=== PATIENT | female | born 1955 | race Caucasian/White ===

== ENCOUNTER 2022-01-04 10:33 | Emergency (ER) | payer OTHER, SELFPAY ==
[2022-01-04 11:51] LABS: Hemoglobin 14.4 g/dL (12.0-15.5); Mean Corpuscular HGB CONC 32.7 g/dL (32.0-36.0); Mean Corpuscular Hemoglobin 29.6 pg (27.0-33.0); Mean Corpuscular Volume 90.7 fl (81.6-98.3); Mean Platelet Volume 9.8 fl (7.4-10.4); Platelet Count 292 10x3/uL (150-450); RBC Distribution Width 14.9 % (11.5-14.5); Red Blood Cell (RBC) Count 4.86 10x6/uL (3.90-5.03); White Blood Cell (WBC) Count 7.2 10x3/uL (3.5-10.5)
[2022-01-04 11:52] LABS: MDiff Complete? YES
[2022-01-04 12:12] LABS: ALT (SGPT) 20 U/L (8-55); AST (SGOT) 20 U/L (5-34); Albumin 4.2 g/dL (3.4-4.8); Alkaline Phosphatase 46 U/L (40-110); Anion Gap 14 mmol/L (10-20); BUN (Urea Nitrogen) 11 mg/dL (9.8-20.1); Bilirubin, Total 0.5 mg/dL (0.2-1.2); Calc. Creatinine Clearance 0 mL/min (70-130); Calcium 9.1 mg/dL (7.8-10.44); Carbon Dioxide 27 mmol/L (23-31); Chloride 101 mmol/L (98-107); Globulin 1.9 g/dL (2.4-3.5); Glucose 100 mg/dL (80-115); Protein, Total 6.1 g/dL (5.8-8.1); Sodium 138 mmol/L (136-145)
[2022-01-04] MEDS ORDERED: diphenhydrAMINE 50 MG/ML VIAL ONE (12:26)
[2022-01-04] MEDS ORDERED: Metoclopramide HCl 10 MG/2 ML VIAL ONE (12:26)
[2022-01-04 12:31] LABS: Eosinophils 2 % (0-10); Lymphocytes 9 % (21-51); Monocytes 14 % (0-10); Neutrophil 64 % (42-75); Reactive Lymphocytes 10 % (0-10)
[2022-01-04 12:32] LABS: Platelet Morphology Comment Appears Adequate; RBC Morphology Normal
[2022-01-04 12:33] LABS: Bilirubin Neg (Negative); Blood, Urine 10 (Negative); Clarity Clear (Clear); Glucose, Urine (Dipstick) Normal (Negative); Ketone, Urine Negative (Negative); Leukocyte 25 (Negative); Nitrite Negative (Negative); Protein, Urine (Dipstick) 15 mg/dl (Neg-Trace); Urobilinogen Normal mg/dL (Less than 2)
[2022-01-04 13:00] LABS: Bacteria/HPF None Seen HPF (None Seen); Mucous/LPF 1+ LPF (<2+); RBC/HPF 0-3 HPF (0-3); Squamous Epithelial 0-3 HPF (0-3); WBC/HPF 0-3 HPF (0-3)
[2022-01-04] MEDS ORDERED: Ketorolac Tromethamine 30 MG/ML VIAL ONE (13:19)
== END 2022-01-04 14:59 | disposition home or self-care (01) ==
LOC: CSHERS 10:33
DX: S39.012A Strain of muscle, fascia and tendon of lower back, initial encounter (principal); J44.9 Chronic obstructive pulmonary disease, unspecified; G43.909 Migraine, unspecified, not intractable, without status migrainosus; F17.210 Nicotine dependence, cigarettes, uncomplicated; X58.XXXA Exposure to other specified factors, initial encounter
CPT/HCPCS: 70450; 71045; 80053; 81003; 81015; 83880; 84484; 85025; 93005; 96374; 96375; J1200; J1885; J2765

== ENCOUNTER 2022-01-18 16:06 | Emergency (ER) | payer OTHER ==
[2022-01-18 17:23] LABS: #Basophils 0.1 10x3/uL (0.0-0.2); #Monocytes 1.3 10x3/uL (0.0-1.1); #Neutrophils 13.8 10x3/uL (1.5-8.4); %Basophils 0.3 % (0.0-2.0); %Eosinophils 0.1 % (0.0-6.0); %Lymphocytes 13.9 % (18.0-47.0); %Monocytes 7.4 % (0.0-10.0); %Neutrophils 77.5 % (40.0-75.0); Hemoglobin 15.8 g/dL (12.0-15.5); Mean Corpuscular HGB CONC 33.2 g/dL (32.0-36.0); Mean Corpuscular Hemoglobin 29.6 pg (27.0-33.0); Mean Corpuscular Volume 89.1 fl (81.6-98.3); Platelet Count 349 10x3/uL (150-450); RBC Distribution Width 14.5 % (11.5-14.5); Red Blood Cell (RBC) Count 5.34 10x6/uL (3.90-5.03); White Blood Cell (WBC) Count 17.8 10x3/uL (3.5-10.5)
[2022-01-18 17:34] LABS: INR-International Normal Ratio 0.9; PTT 23.3 sec (22.0-33.0); Prothrombin Time 10.3 sec (9.5-12.1)
[2022-01-18 17:39] LABS: ALT (SGPT) 15 U/L (8-55); AST (SGOT) 16 U/L (5-34); Albumin 4.6 g/dL (3.4-4.8); Alkaline Phosphatase 64 U/L (40-110); Anion Gap 18 mmol/L (10-20); BUN (Urea Nitrogen) 21 mg/dL (9.8-20.1); Bilirubin, Total 0.5 mg/dL (0.2-1.2); Calc. Creatinine Clearance 0 mL/min (70-130); Calcium 10.3 mg/dL (7.8-10.44); Carbon Dioxide 23 mmol/L (23-31); Chloride 103 mmol/L (98-107); Estimated GFR 72; Globulin 2.6 g/dL (2.4-3.5); Glucose 109 mg/dL (80-115); Potassium 4.8 mmol/L (3.5-5.1); Protein, Total 7.2 g/dL (5.8-8.1); Sodium 139 mmol/L (136-145)
[2022-01-18] MEDS ORDERED: Heparin 25,000 units/D5W 500 ML ONE (18:12)
[2022-01-18 20:34] LABS: SARS-CoV-2 NAA Rapid Test DETECTED (NotDetected)
== END 2022-01-18 22:44 | disposition short-term general hospital (02) ==
LOC: CSHERS 16:06
DX: I26.99 Other pulmonary embolism without acute cor pulmonale (principal); I82.402 Acute embolism and thrombosis of unspecified deep veins of left lower extremity; F17.210 Nicotine dependence, cigarettes, uncomplicated; Z20.822 Contact with and (suspected) exposure to COVID-19
CPT/HCPCS: 71275; 80053; 83605; 83880; 84484; 85025; 85610; 85730; 93005; 93923; 96361; 96365; 96366; 96376; J1644; U0002

== ENCOUNTER 2022-02-03 09:28 | Emergency (ER) | payer OTHER ==
[2022-02-03 10:20] LABS: #Monocytes 0.1 10x3/uL (0.0-1.1); #Neutrophils 9.3 10x3/uL (1.5-8.4); %Basophils 0.3 % (0.0-2.0); %Eosinophils 0.3 % (0.0-6.0); %Lymphocytes 8.2 % (18.0-47.0); %Monocytes 1.3 % (0.0-10.0); %Neutrophils 89.1 % (40.0-75.0); Hemoglobin 13.6 g/dL (12.0-15.5); Mean Corpuscular HGB CONC 32.7 g/dL (32.0-36.0); Mean Corpuscular Hemoglobin 29.9 pg (27.0-33.0); Mean Corpuscular Volume 91.4 fl (81.6-98.3); Mean Platelet Volume 10.1 fl (7.4-10.4); Platelet Count 439 10x3/uL (150-450); RBC Distribution Width 14.5 % (11.5-14.5); Red Blood Cell (RBC) Count 4.55 10x6/uL (3.90-5.03); White Blood Cell (WBC) Count 10.5 10x3/uL (3.5-10.5)
[2022-02-03] MEDS ORDERED: methylPREDNISolone Sod Succ/PF 125 MG/2 ML VIAL ONE (10:22)
[2022-02-03 10:35] LABS: ALT (SGPT) 15 U/L (8-55); AST (SGOT) 17 U/L (5-34); Albumin 4.2 g/dL (3.4-4.8); Alkaline Phosphatase 62 U/L (40-110); Anion Gap 17 mmol/L (10-20); BUN (Urea Nitrogen) 13 mg/dL (9.8-20.1); Bilirubin, Total 0.6 mg/dL (0.2-1.2); Calc. Creatinine Clearance 0 mL/min (70-130); Calcium 9.8 mg/dL (7.8-10.44); Carbon Dioxide 25 mmol/L (23-31); Chloride 105 mmol/L (98-107); Estimated GFR 79; Globulin 2.7 g/dL (2.4-3.5); Glucose 145 mg/dL (80-115); Potassium 3.9 mmol/L (3.5-5.1); Protein, Total 6.9 g/dL (5.8-8.1); Sodium 143 mmol/L (136-145)
[2022-02-03] MEDS ORDERED: Albuterol Sulfate 2.5 mg/3 ml Neb ONE (10:38)
== END 2022-02-03 12:23 | disposition home or self-care (01) ==
LOC: CSHERS 09:28
DX: J44.1 Chronic obstructive pulmonary disease with (acute) exacerbation (principal); F17.210 Nicotine dependence, cigarettes, uncomplicated
CPT/HCPCS: 71045; 80053; 83880; 84484; 85025; 93005; 94640; 96374; J2930; J7611; J7620

== ENCOUNTER 2022-04-03 04:16 | Emergency (ER) | payer OTHER ==
[2022-04-03 05:32] LABS: #Basophils 0.1 10x3/uL (0.0-0.2); #Eosinphils 0.8 10x3/uL (0.0-0.5); #Monocytes 0.6 10x3/uL (0.0-1.1); #Neutrophils 7.1 10x3/uL (1.5-8.4); %Basophils 0.7 % (0.0-2.0); %Eosinophils 6.1 % (0.0-6.0); %Lymphocytes 30.9 % (18.0-47.0); %Monocytes 4.7 % (0.0-10.0); %Neutrophils 57.1 % (40.0-75.0); Hemoglobin 14.6 g/dL (12.0-15.5); Mean Corpuscular HGB CONC 32.7 g/dL (32.0-36.0); Mean Corpuscular Hemoglobin 30.3 pg (27.0-33.0); Mean Corpuscular Volume 92.7 fl (81.6-98.3); Mean Platelet Volume 10.1 fl (7.4-10.4); Platelet Count 457 10x3/uL (150-450); RBC Distribution Width 13.9 % (11.5-14.5); Red Blood Cell (RBC) Count 4.82 10x6/uL (3.90-5.03); White Blood Cell (WBC) Count 12.4 10x3/uL (3.5-10.5)
[2022-04-03 05:40] LABS: ALT (SGPT) 16 U/L (8-55); AST (SGOT) 19 U/L (5-34); Albumin 4.2 g/dL (3.4-4.8); Alkaline Phosphatase 60 U/L (40-110); Anion Gap 15 mmol/L (10-20); BUN (Urea Nitrogen) 15 mg/dL (9.8-20.1); Bilirubin, Total 0.3 mg/dL (0.2-1.2); Calc. Creatinine Clearance 0 mL/min (70-130); Calcium 9.1 mg/dL (7.8-10.44); Carbon Dioxide 24 mmol/L (23-31); Chloride 105 mmol/L (98-107); Estimated GFR 80; Globulin 2.3 g/dL (2.4-3.5); Glucose 158 mg/dL (80-115); Potassium 4.4 mmol/L (3.5-5.1); Protein, Total 6.5 g/dL (5.8-8.1); Sodium 140 mmol/L (136-145)
[2022-04-03] MEDS ORDERED: HYDROcodone/Acetaminophen 10/325 mg Tablet ONE (08:03)
[2022-04-03] MEDS ORDERED: HYDROcodone/Acetaminophen 5/325 mg Tablet ONE (08:05)
== END 2022-04-03 08:10 | disposition home or self-care (01) ==
LOC: CSHERS 04:16
DX: J44.1 Chronic obstructive pulmonary disease with (acute) exacerbation (principal); F17.210 Nicotine dependence, cigarettes, uncomplicated
CPT/HCPCS: 71045; 80053; 84484; 85025; 93005

== ENCOUNTER 2022-10-23 08:00 | Emergency (ER) | payer OTHER, MEDICAID, MEDICARE ==
[2022-10-23 08:41] LABS: #Basophils 0.1 10x3/uL (0.0-0.2); #Eosinphils 0.3 10x3/uL (0.0-0.5); #Monocytes 1.3 10x3/uL (0.0-1.1); #Neutrophils 6.6 10x3/uL (1.5-8.4); %Basophils 0.5 % (0.0-2.0); %Lymphocytes 38.2 % (18.0-47.0); %Monocytes 9.4 % (0.0-10.0); %Neutrophils 48.2 % (40.0-75.0); Hemoglobin 12.5 g/dL (12.0-15.5); Mean Corpuscular HGB CONC 31.4 g/dL (32.0-36.0); Mean Corpuscular Hemoglobin 28.9 pg (27.0-33.0); Mean Corpuscular Volume 92.1 fl (81.6-98.3); Mean Platelet Volume 9.5 fl (7.4-10.4); Platelet Count 434 10x3/uL (150-450); RBC Distribution Width 15.4 % (11.5-14.5); Red Blood Cell (RBC) Count 4.32 10x6/uL (3.90-5.03); White Blood Cell (WBC) Count 13.7 10x3/uL (3.5-10.5)
[2022-10-23 08:54] LABS: ALT (SGPT) 29 U/L (8-55); AST (SGOT) 18 U/L (5-34); Albumin 3.9 g/dL (3.4-4.8); Alkaline Phosphatase 61 U/L (40-110); Anion Gap 15 mmol/L (10-20); BUN (Urea Nitrogen) 19 mg/dL (9.8-20.1); Bilirubin, Total 0.4 mg/dL (0.2-1.2); Calc. Creatinine Clearance 0 mL/min (70-130); Calcium 8.4 mg/dL (7.8-10.44); Carbon Dioxide 24 mmol/L (23-31); Chloride 106 mmol/L (98-107); Estimated GFR 83; Globulin 1.6 g/dL (2.4-3.5); Glucose 98 mg/dL (80-115); Lipase 5 U/L (8-78); Potassium 3.7 mmol/L (3.5-5.1); Protein, Total 5.5 g/dL (5.8-8.1); Sodium 141 mmol/L (136-145)
[2022-10-23] MEDS ORDERED: Dexamethasone 10 MG/ML VIAL ONE (09:07)
[2022-10-23] MEDS ORDERED: HYDROcodone/Acetaminophen 5/325 mg Tablet ONE (09:08)
[2022-10-23] MEDS ORDERED: Ipratropium/Albuterol 3 ML NEB ONE (09:08)
== END 2022-10-23 10:45 | disposition home or self-care (01) ==
LOC: CSHERS 08:00
DX: M62.838 Other muscle spasm (principal); J44.9 Chronic obstructive pulmonary disease, unspecified; F17.210 Nicotine dependence, cigarettes, uncomplicated
CPT/HCPCS: 36415; 71045; 80053; 83690; 84484; 85025; 85379; 93005; 96374; J1100; J7620

== ENCOUNTER 2023-02-11 10:10 | Emergency (ER) | payer OTHER, MEDICAID ==
[2023-02-11 10:47] LABS: #Basophils 0.1 10x3/uL (0.0-0.2); #Eosinphils 1.3 10x3/uL (0.0-0.5); #Monocytes 0.7 10x3/uL (0.0-1.1); #Neutrophils 5.1 10x3/uL (1.5-8.4); %Basophils 0.7 % (0.0-2.0); %Eosinophils 12.9 % (0.0-6.0); %Monocytes 6.8 % (0.0-10.0); %Neutrophils 51.3 % (40.0-75.0); Mean Corpuscular HGB CONC 32.2 g/dL (32.0-36.0); Mean Corpuscular Hemoglobin 30.2 pg (27.0-33.0); Mean Corpuscular Volume 93.7 fl (81.6-98.3); Mean Platelet Volume 10.3 fl (7.4-10.4); Platelet Count 330 10x3/uL (150-450); Red Blood Cell (RBC) Count 4.31 10x6/uL (3.90-5.03); White Blood Cell (WBC) Count 9.9 10x3/uL (3.5-10.5)
[2023-02-11 10:57] LABS: ALT (SGPT) 11 U/L (8-55); AST (SGOT) 16 U/L (5-34); Alkaline Phosphatase 56 U/L (40-110); Anion Gap 15 mmol/L (10-20); BUN (Urea Nitrogen) 11 mg/dL (9.8-20.1); Bilirubin, Total 0.3 mg/dL (0.2-1.2); Calc. Creatinine Clearance 0 mL/min (70-130); Calcium 8.9 mg/dL (7.8-10.44); Carbon Dioxide 27 mmol/L (23-31); Chloride 102 mmol/L (98-107); Estimated GFR 83; Globulin 1.6 g/dL (2.4-3.5); Glucose 113 mg/dL (80-115); Potassium 4.1 mmol/L (3.5-5.1); Protein, Total 5.6 g/dL (5.8-8.1); Sodium 140 mmol/L (136-145)
[2023-02-11] MEDS ORDERED: Cyclobenzaprine 10 MG TAB ONE (12:02)
[2023-02-11] MEDS ORDERED: Ipratropium/Albuterol 3 ML NEB ONE (13:03)
[2023-02-11] MEDS ORDERED: Ketorolac Tromethamine 30 MG/ML VIAL ONE (13:16)
[2023-02-11] MEDS ORDERED: Methocarbamol 500 MG TAB PO SCH (13:45)
[2023-02-11] MEDS ORDERED: Lidocaine 4% Patch TD SCH (13:45)
== END 2023-02-11 13:57 | disposition home or self-care (01) ==
LOC: CSHERS 10:10
DX: S23.41XA Sprain of ribs, initial encounter (principal); J44.9 Chronic obstructive pulmonary disease, unspecified; F17.210 Nicotine dependence, cigarettes, uncomplicated; Z79.01 Long term (current) use of anticoagulants
CPT/HCPCS: 36415; 80053; 84484; 85025; 93005; 94640; 94760; 96374; J1885; J7620

== ENCOUNTER 2023-03-21 18:56 | Inpatient (IN) | payer OTHER, MEDICAID ==
[2023-03-21] MEDS ORDERED: Ipratropium/Albuterol 3 ML NEB ONE (19:49)
[2023-03-21 20:03] LABS: #Basophils 0.1 10x3/uL (0.0-0.2); #Eosinphils 0.4 10x3/uL (0.0-0.5); #Monocytes 0.7 10x3/uL (0.0-1.1); #Neutrophils 8.2 10x3/uL (1.5-8.4); %Basophils 0.6 % (0.0-2.0); %Eosinophils 3.1 % (0.0-6.0); %Lymphocytes 22.5 % (18.0-47.0); %Monocytes 5.7 % (0.0-10.0); %Neutrophils 67.7 % (40.0-75.0); Hematocrit 43.1 % (34.9-44.5); Hemoglobin 13.9 g/dL (12.0-15.5); Mean Corpuscular HGB CONC 32.3 g/dL (32.0-36.0); Mean Corpuscular Hemoglobin 29.4 pg (27.0-33.0); Mean Corpuscular Volume 91.3 fl (81.6-98.3); Mean Platelet Volume 10.4 fl (7.4-10.4); Platelet Count 311 10x3/uL (150-450); RBC Distribution Width 13.2 % (11.5-14.5); Red Blood Cell (RBC) Count 4.72 10x6/uL (3.90-5.03); White Blood Cell (WBC) Count 12.1 10x3/uL (3.5-10.5)
[2023-03-21 20:18] LABS: ALT (SGPT) 14 U/L (8-55); AST (SGOT) 21 U/L (5-34); Albumin 4.1 g/dL (3.4-4.8); Alkaline Phosphatase 47 U/L (40-110); Anion Gap 18 mmol/L (10-20); BUN (Urea Nitrogen) 18 mg/dL (9.8-20.1); Bilirubin, Total 0.4 mg/dL (0.2-1.2); Calc. Creatinine Clearance 0 mL/min (70-130); Carbon Dioxide 20 mmol/L (23-31); Chloride 104 mmol/L (98-107); Estimated GFR 77; Globulin 2.2 g/dL (2.4-3.5); Glucose 77 mg/dL (80-115); Magnesium 1.7 mg/dL (1.6-2.6); Protein, Total 6.3 g/dL (5.8-8.1); Sodium 138 mmol/L (136-145)
[2023-03-21 21:37] LABS: SARS-CoV-2 NAA Rapid Test Not Detected (NotDetected)
[2023-03-21] MEDS ORDERED: LevoFLOXacin 500 mg/D5W 100 ML BAG ONE (22:13)
[2023-03-21] MEDS ORDERED: Acetaminophen 325 MG TAB PO PRN (22:44)
[2023-03-21] MEDS ORDERED: Arformoterol 15 MCG/2 ML NEB NEB SCH (23:00)
[2023-03-21 23:24] VITALS: BMI 18.2
[2023-03-21] MEDS: methylPREDNISolone Sod Succ 40 MG VIAL IVP SCH (23:56)
[2023-03-22] MEDS: Ipratropium/Albuterol 3 ML NEB NEB SCH ×4 (00:50→20:25)
[2023-03-22] MEDS: Methocarbamol 500 MG TAB PO PRN ×2 (01:05→22:56)
[2023-03-22 05:45] LABS: #Monocytes 0.1 10x3/uL (0.0-1.1); #Neutrophils 5.1 10x3/uL (1.5-8.4); %Basophils 0.3 % (0.0-2.0); %Lymphocytes 17.8 % (18.0-47.0); %Monocytes 1.2 % (0.0-10.0); %Neutrophils 79.8 % (40.0-75.0); Hematocrit 38.6 % (34.9-44.5); Hemoglobin 12.7 g/dL (12.0-15.5); Mean Corpuscular HGB CONC 32.9 g/dL (32.0-36.0); Mean Corpuscular Hemoglobin 29.7 pg (27.0-33.0); Mean Corpuscular Volume 90.4 fl (81.6-98.3); Mean Platelet Volume 10.3 fl (7.4-10.4); Platelet Count 311 10x3/uL (150-450); RBC Distribution Width 13.4 % (11.5-14.5); Red Blood Cell (RBC) Count 4.27 10x6/uL (3.90-5.03); White Blood Cell (WBC) Count 6.5 10x3/uL (3.5-10.5)
[2023-03-22 05:51] LABS: Anion Gap 17 mmol/L (10-20); BUN (Urea Nitrogen) 23 mg/dL (9.8-20.1); Calc. Creatinine Clearance 50 mL/min (70-130); Calcium 8.9 mg/dL (7.8-10.44); Carbon Dioxide 21 mmol/L (23-31); Chloride 103 mmol/L (98-107); Estimated GFR 78; Glucose 114 mg/dL (80-115); Magnesium 1.9 mg/dL (1.6-2.6); Potassium 4.4 mmol/L (3.5-5.1); Sodium 137 mmol/L (136-145)
[2023-03-22] MEDS: Budesonide 0.5 MG/2 ML NEB NEB SCH ×2 (07:20→20:45)
[2023-03-22] MEDS: Arformoterol 15 MCG/2 ML NEB NEB SCH ×2 (07:25→21:02)
[2023-03-22] MEDS ORDERED: Sertraline 25 MG TAB PO SCH ×2 (09:00→22:00)
[2023-03-22] MEDS: methylPREDNISolone Sod Succ 40 MG VIAL IVP SCH ×3 (09:00→23:00)
[2023-03-22] MEDS: Saccharomyces boulardii 250 MG CAP PO SCH (09:01)
[2023-03-22] MEDS: Calcium Carbonate 600 MG TAB PO SCH (09:01)
[2023-03-22] MEDS: Cholecalciferol 1,000 UNITS (25 MCG) TAB PO SCH (09:01)
[2023-03-22] MEDS: Magnesium Oxide 400 MG TAB PO SCH (09:01)
[2023-03-22] MEDS ORDERED: LevoFLOXacin 500 mg/D5W 500 MG in Premix Bag 1 BAG IVPB SCH (22:00)
[2023-03-23] MEDS: Ipratropium/Albuterol 3 ML NEB NEB SCH ×3 (00:26→14:00)
[2023-03-23] MEDS: Budesonide 0.5 MG/2 ML NEB NEB SCH (05:50)
[2023-03-23] MEDS: Arformoterol 15 MCG/2 ML NEB NEB SCH (06:05)
[2023-03-23] MEDS ORDERED: Ipratropium/Albuterol 3 ML NEB NEB PRN (09:44)
[2023-03-23] MEDS: methylPREDNISolone Sod Succ 40 MG VIAL IVP SCH (09:47)
[2023-03-23] MEDS: Methocarbamol 500 MG TAB PO PRN (09:52)
[2023-03-23] MEDS: Cholecalciferol 1,000 UNITS (25 MCG) TAB PO SCH (09:53)
[2023-03-23] MEDS: Saccharomyces boulardii 250 MG CAP PO SCH (09:53)
[2023-03-23] MEDS: Magnesium Oxide 400 MG TAB PO SCH (09:53)
[2023-03-23] MEDS: Calcium Carbonate 600 MG TAB PO SCH (09:53)
[2023-03-23 16:23] VITALS: BP 133/81; TEMP 98.2
[2023-03-23] MEDS ORDERED: Sertraline 25 MG TAB PO SCH (21:00)
[2023-03-23] MEDS ORDERED: methylPREDNISolone Sod Succ 40 MG VIAL IVP SCH (21:00)
[2023-03-23] MEDS ORDERED: LevoFLOXacin 750 MG TAB PO SCH (22:00)
[2023-03-24] MEDS ORDERED: DUPILUMAB 300 MG/2 ML SC SCH ×2 (09:00)
== END 2023-03-23 15:00 | disposition home or self-care (01) | DRG 189 ==
LOC: CSHERS 18:56 → CSHTELE 22:56 → OBSVTOIN 22:56
PROVIDERS: ADMIT Family Medicine; ATTEND Family Medicine
DX: J96.21 Acute and chronic respiratory failure with hypoxia (principal); J44.1 Chronic obstructive pulmonary disease with (acute) exacerbation; M48.54XA Collapsed vertebra, not elsewhere classified, thoracic region, initial encounter for fracture; Z20.822 Contact with and (suspected) exposure to COVID-19; Z99.81 Dependence on supplemental oxygen; Z88.6 Allergy status to analgesic agent; Z88.8 Allergy status to other drugs, medicaments and biological substances; Z88.5 Allergy status to narcotic agent; Z79.899 Other long term (current) drug therapy; Z79.52 Long term (current) use of systemic steroids; Z86.711 Personal history of pulmonary embolism; Z86.718 Personal history of other venous thrombosis and embolism; Z90.710 Acquired absence of both cervix and uterus; Z90.49 Acquired absence of other specified parts of digestive tract; Z90.89 Acquired absence of other organs; Z87.891 Personal history of nicotine dependence; Z82.49 Family history of ischemic heart disease and other diseases of the circulatory system; Z80.1 Family history of malignant neoplasm of trachea, bronchus and lung
CPT/HCPCS: 36415; 71045; 71275; 80048; 80053; 83735; 85025; 93005; 94640; 94760; 94799; J1650; J1956; J2920; J7620; J7626

== ENCOUNTER 2023-03-26 09:25 | Inpatient (IN) | payer OTHER, MEDICAID ==
[2023-03-26] MEDS ORDERED: Iopamidol 370 76% 100 ML VIAL ONE (10:05)
[2023-03-26 11:35] LABS: INR-International Normal Ratio 1.1; PTT 23.4 sec (22.0-33.0); Prothrombin Time 11.7 sec (9.5-12.1)
[2023-03-26 11:41] LABS: Troponin I Less than 0.010 ng/mL (< 0.028)
[2023-03-26] MEDS ORDERED: Heparin 25,000 units/D5W 500 ML ONE (12:06)
[2023-03-26] MEDS ORDERED: Heparin 10,000 UNITS/ 10 ML VIAL SLOW IVP SCH ×3 (13:00→17:00)
[2023-03-26] MEDS ORDERED: Acetaminophen 325 MG TAB PO PRN (14:20)
[2023-03-26] MEDS ORDERED: Ondansetron PF 4 MG/2 ML Vial IVP PRN (14:20)
[2023-03-26] MEDS ORDERED: Ondansetron ODT 4 MG TAB PO PRN (14:20)
[2023-03-26] MEDS ORDERED: Heparin 25,000 units/D5W 500 ML IVPB SCH (14:45)
[2023-03-26 14:50] LABS: #Basophils 0.1 10x3/uL (0.0-0.2); #Eosinphils 0.6 10x3/uL (0.0-0.5); #Monocytes 1.3 10x3/uL (0.0-1.1); #Neutrophils 8.8 10x3/uL (1.5-8.4); %Basophils 0.3 % (0.0-2.0); %Eosinophils 3.7 % (0.0-6.0); %Lymphocytes 31.4 % (18.0-47.0); %Monocytes 8.2 % (0.0-10.0); %Neutrophils 55.8 % (40.0-75.0); Hematocrit 43.4 % (34.9-44.5); Hemoglobin 14.2 g/dL (12.0-15.5); Mean Corpuscular HGB CONC 32.7 g/dL (32.0-36.0); Mean Corpuscular Hemoglobin 29.6 pg (27.0-33.0); Mean Corpuscular Volume 90.4 fl (81.6-98.3); Mean Platelet Volume 10.5 fl (7.4-10.4); Platelet Count 313 10x3/uL (150-450); RBC Distribution Width 13.9 % (11.5-14.5); White Blood Cell (WBC) Count 15.8 10x3/uL (3.5-10.5)
[2023-03-26 15:09] LABS: Anion Gap 14 mmol/L (10-20); BUN (Urea Nitrogen) 24 mg/dL (9.8-20.1); Calc. Creatinine Clearance 0 mL/min (70-130); Calcium 9.8 mg/dL (7.8-10.44); Carbon Dioxide 28 mmol/L (23-31); Chloride 99 mmol/L (98-107); Estimated GFR 66; Glucose 110 mg/dL (80-115); Potassium 3.3 mmol/L (3.5-5.1); Sodium 138 mmol/L (136-145)
[2023-03-26 18:33] VITALS: BMI 17.0
[2023-03-26] MEDS: Ipratropium/Albuterol 3 ML NEB NEB PRN (20:06)
[2023-03-26] MEDS: Methocarbamol 500 MG TAB PO PRN (21:41)
[2023-03-26] MEDS: Sertraline 25 MG TAB PO PRN (21:41)
[2023-03-26] MEDS ORDERED: LevoFLOXacin 750 MG TAB PO SCH ×2 (22:00)
[2023-03-26] MEDS ORDERED: Budesonide 0.5 MG/2 ML NEB NEB SCH (22:00)
[2023-03-27] MEDS ORDERED: Dicyclomine 20 MG TAB PO SCH (04:45)
[2023-03-27] MEDS: Ipratropium/Albuterol 3 ML NEB NEB PRN ×2 (07:30→17:40)
[2023-03-27] MEDS: Budesonide 0.5 MG/2 ML NEB NEB SCH ×2 (08:57→19:45)
[2023-03-27] MEDS ORDERED: Calcium Carbonate 600 MG TAB PO SCH (09:00)
[2023-03-27] MEDS ORDERED: Cholecalciferol 1,000 UNITS (25 MCG) TAB PO SCH (09:00)
[2023-03-27] MEDS: Apixaban 5 MG TAB PO SCH ×2 (10:40→20:41)
[2023-03-27] MEDS: Magnesium Oxide 400 MG TAB PO SCH (10:40)
[2023-03-27] MEDS: predniSONE 5 MG TAB PO SCH (10:40)
[2023-03-27] MEDS ORDERED: Atenolol 25 MG TAB PO SCH (12:00)
[2023-03-27] MEDS ORDERED: DUPILUMAB 300 MG/2 ML DT SCH (12:15)
[2023-03-27] MEDS: Methocarbamol 500 MG TAB PO PRN (20:41)
[2023-03-27] MEDS: Sertraline 25 MG TAB PO PRN (20:41)
[2023-03-27] MEDS ORDERED: Montelukast Sodium 10 mg Tablet PO SCH (21:00)
[2023-03-28 06:16] LABS: Hematocrit 39.6 % (34.9-44.5); Hemoglobin 12.8 g/dL (12.0-15.5); Mean Corpuscular HGB CONC 32.3 g/dL (32.0-36.0); Mean Corpuscular Hemoglobin 29.1 pg (27.0-33.0); Mean Platelet Volume 10.4 fl (7.4-10.4); Platelet Count 313 10x3/uL (150-450); RBC Distribution Width 13.9 % (11.5-14.5); White Blood Cell (WBC) Count 12.5 10x3/uL (3.5-10.5)
[2023-03-28 06:36] LABS: Anion Gap 14 mmol/L (10-20); BUN (Urea Nitrogen) 21 mg/dL (9.8-20.1); Calc. Creatinine Clearance 48 mL/min (70-130); Calcium 9.2 mg/dL (7.8-10.44); Carbon Dioxide 27 mmol/L (23-31); Chloride 100 mmol/L (98-107); Estimated GFR 82; Glucose 109 mg/dL (80-115); Potassium 3.8 mmol/L (3.5-5.1); Sodium 137 mmol/L (136-145)
[2023-03-28] MEDS: Apixaban 5 MG TAB PO SCH (08:19)
[2023-03-28] MEDS: predniSONE 5 MG TAB PO SCH (08:19)
[2023-03-28] MEDS: Magnesium Oxide 400 MG TAB PO SCH (08:19)
[2023-03-28] MEDS ORDERED: Atenolol 25 MG TAB PO SCH (09:00)
[2023-03-28] MEDS: Budesonide 0.5 MG/2 ML NEB NEB SCH (09:20)
[2023-03-28 12:50] VITALS: BP 117/72; TEMP 99.2
== END 2023-03-28 12:55 | disposition home or self-care (01) | DRG 300 ==
LOC: SUATTDRO 09:25 → CSHERS 09:25 → CSHTELE 16:24
PROVIDERS: ADMIT Family Medicine; ATTEND Internal Medicine
DX: I82.412 Acute embolism and thrombosis of left femoral vein (principal); J96.11 Chronic respiratory failure with hypoxia; J44.9 Chronic obstructive pulmonary disease, unspecified; M79.89 Other specified soft tissue disorders; I87.8 Other specified disorders of veins; I10 Essential (primary) hypertension; K58.9 Irritable bowel syndrome, unspecified; E78.5 Hyperlipidemia, unspecified; Z88.5 Allergy status to narcotic agent; Z88.0 Allergy status to penicillin; Z88.8 Allergy status to other drugs, medicaments and biological substances; Z79.899 Other long term (current) drug therapy; Z90.710 Acquired absence of both cervix and uterus; Z90.49 Acquired absence of other specified parts of digestive tract; Z90.89 Acquired absence of other organs; Z98.890 Other specified postprocedural states; Z87.891 Personal history of nicotine dependence; Z82.49 Family history of ischemic heart disease and other diseases of the circulatory system
CPT/HCPCS: 36415; 71275; 80048; 83880; 84484; 85027; 85610; 85730; 93005; 94640; 94760; 94762; 96365; 96366; 96376; J1644; J7512; J7611; J7620; J7626; Q9967